=== PATIENT | female | born 2000 | race Caucasian/White ===

== ENCOUNTER 2021-08-18 01:41 | Emergency (ER) | payer OTHER ==
[~2021-08-18] VITALS: Ht 165.1 cm; Wt 72.8 kg
[2021-08-18 03:54] VITALS: BP 117/71
== END 2021-08-18 04:21 | disposition home or self-care (01) ==
LOC: EMS 01:45
DX: S13.4XXA Sprain of ligaments of cervical spine, initial encounter (principal); Z88.6 Allergy status to analgesic agent; V89.2XXA Person injured in unspecified motor-vehicle accident, traffic, initial encounter; Y93.89 Activity, other specified; Y92.89 Other specified places as the place of occurrence of the external cause; Y99.8 Other external cause status
CPT/HCPCS: 99281; Z7502